=== PATIENT | male | born 1980 | race Hispanic/Latino ===

== ENCOUNTER 2020-01-23 07:17 | Outpatient (CLI) | payer OTHER ==
[2020-01-23 13:00] LABS: #Basophils 0.1 thou/uL (0.0-0.2); #Eosinphils 0.1 thou/uL (0.0-0.7); #Lymphocytes 2.3 thou/uL (1.20-3.40); #Monocytes 0.5 thou/uL (0.11-0.59); #Neutrophils 2.3 thou/uL (1.40-6.50); %Basophils 1.3 % (0.0-1.0); %Lymphocytes 44.2 % (21.0-51.0); %Monocytes 9.5 % (0.0-10.0); Hemoglobin 17.4 g/dL (14.0-18.0); Mean Corpuscular HGB CONC 34.1 g/dL (32.0-36.0); Mean Corpuscular Hemoglobin 31.4 pg (27.0-31.0); Mean Platelet Volume 8.3 fL (7.4-10.4); Platelet Count 200 thou/uL (130-400); RBC Distribution Width 11.4 % (11.5-14.5); Red Blood Cell (RBC) Count 5.54 mill/uL (4.70-6.10); White Blood Cell (WBC) Count 5.2 thou/uL (4.8-10.8)
== END 2020-01-23 07:18 | disposition home or self-care (01) ==
LOC: LABBT 07:17
PROVIDERS: ATTEND Orthopaedic Surgery
DX: Z01.812 Encounter for preprocedural laboratory examination (principal); S46.211A Strain of muscle, fascia and tendon of other parts of biceps, right arm, initial encounter
CPT/HCPCS: 85025

== ENCOUNTER 2020-01-24 12:50 | Outpatient (CLI) | payer OTHER ==
[2020-01-24 18:26] LABS: SARS-CoV-2 MS2 Positive; SARS-CoV-2 N Gene Negative; SARS-CoV-2 S Gene Negative; SARS-CoV-2 orf1ab Negative
== END 2020-01-24 12:51 | disposition home or self-care (01) ==
LOC: LABBT 12:50
PROVIDERS: ATTEND Orthopaedic Surgery
DX: Z01.812 Encounter for preprocedural laboratory examination (principal); Z11.59 Encounter for screening for other viral diseases; S46.211A Strain of muscle, fascia and tendon of other parts of biceps, right arm, initial encounter
CPT/HCPCS: 87635; U0003

== ENCOUNTER 2020-01-28 06:36 | Day surgery (SDC) | payer OTHER ==
[2020-01-23 12:10] VITALS: BMI 31.9
[2020-01-28] MEDS ORDERED: Fentanyl 100 MCG/2 ML VIAL ONE ×3 (09:39→12:11)
[2020-01-28] MEDS ORDERED: Bupivacaine/Epinephrine 0.25% 30 ML VIAL ONE (10:10)
[2020-01-28] MEDS ORDERED: PROPOFOL 200 MG/20 ML VIAL ONE (10:13)
[2020-01-28] MEDS ORDERED: Glycopyrrolate 0.2 MG/ML 5 ML SYRINGE ONE (10:13)
[2020-01-28] MEDS ORDERED: Succinylcholine Chloride 20 MG/ML 10 ml SYRINGE FS ONE (10:13)
[2020-01-28] MEDS ORDERED: Dexamethasone 20 MG/5 ML VIAL ONE (10:13)
[2020-01-28] MEDS ORDERED: Rocuronium Bromide 10 MG/ML (10ML VIAL) ONE (10:13)
[2020-01-28] MEDS ORDERED: Ketorolac Tromethamine 30 MG/ML VIAL ONE (10:13)
[2020-01-28] MEDS ORDERED: Ondansetron PF 4 MG/2 ML Vial ONE (10:13)
[2020-01-28] MEDS ORDERED: Lidocaine 1% PF 5 ML VIAL ONE (10:13)
[2020-01-28] MEDS ORDERED: HYDROcodone/Acetaminophen 5/325 mg Tablet ONE (13:29)
--- NOTE | 2020-01-29 07:19 | OP ---
DATE OF PROCEDURE: 01/28/2020 PREOPERATIVE DIAGNOSIS: Right distal biceps rupture, chronic. POSTOPERATIVE DIAGNOSIS: Right distal biceps rupture, chronic. PROCEDURE PERFORMED: Right distal biceps repair. MASTER ELECTRICIAN: Ike Castro PA-C. BLOOD LOSS: Minimal. SPECIMENS: None. DRAINS: None. COMPLICATIONS: None. TOURNIQUET TIME: 30 minutes. DESCRIPTION OF PROCEDURE: The patient was taken to the operating room where general anesthesia was induced. He received Ancef preoperatively. Right arm was prepped and draped in the usual sterile fashion. After exsanguination, tourniquet inflated to 350 mmHg. I made a curved incision over the antecubital fossa. Dissection was carried down through the subcutaneous tissue to the lacertus. I identified the stump of the biceps, which was retracted quite proximally. I trimmed this down to 7 mm and ran a FiberWire suture in a Krackow type fashion. The radial tubercle was identified. I cleaned this of soft tissue. I drilled a bicortical 4.5 mm pin and a 7 mm unicortical hole. The sutures were then placed through the Endobutton from [employer], passing through the bone and the tendon was delivered down into the tunnel. The suture was then tied back through a stitch through the biceps tendon. This was a chronic tear and his arm could only be extended to about 80 degrees. Tourniquet was released. Irrigation was performed. Hemostasis was obtained. Subcutaneous tissue was closed with 3-0 Vicryl. Skin was closed with katerin. I did use Marcaine on the incision. The patient was placed in a long-arm posterior splint. There were no complications. Job ID: [id number]
== END 2020-01-28 14:45 | disposition home or self-care (01) ==
LOC: MERGE 06:36 → SDC 06:36
PROVIDERS: ATTEND Orthopaedic Surgery
PROC: 0LM10ZZ Reattachment of Right Shoulder Tendon, Open Approach (ICD-10-PCS; principal; 2020-01-28)
DX: S46.211A Strain of muscle, fascia and tendon of other parts of biceps, right arm, initial encounter (principal); X50.9XXA Other and unspecified overexertion or strenuous movements or postures, initial encounter
CPT/HCPCS: C1713; J0690; J1100; J1885; J2001; J2405; J2704; J3010